=== PATIENT | female | born 1975 | race Caucasian/White ===

== ENCOUNTER 2023-03-11 20:35 | Outpatient (CLI) | payer BC, SELFPAY | END 2023-03-11 20:36 | disposition home or self-care (01) | LOC: SLEEP 20:36 | PROVIDERS: PCP Physician Assistant Medical; Visit Provider Family Medicine | DX: G47.33 Obstructive sleep apnea (adult) (pediatric) (principal) | CPT/HCPCS: 95810 ==

== ENCOUNTER 2025-05-04 09:40 | Emergency (ER) | payer OTHER, SELFPAY ==
--- OUTSIDE RECORDS SUMMARY | 2024-08-18 23:30 | XMS_ITS | Continuity of Care Document ---
Author Organization [facility] Address [address] [address] [place] [address] Phone Care Team Providers Care Char Filter Tank Tender Name Role Phone No Information Unavailable Unavailable Advance Directives Directive Yes / No Effective Date File Name No Information Encounters Encounter Description Practice Location Reason(s) For Visit Diagnoses Date Provider Providers Copied on Encounter [facility], [address] [address], [place], [place], [id number], [place] tel:[phone] No Information No Information Family History Family Member Type Diagnosis Age At Onset No Information Payers Payer name Insurance type Covered democrat ID Authoriza tion(s) No Information Social History Type Description Quantity Date Captured Comments Sex Female Smoking Status No Information Chief Complaint And Reason For Visit No Information Reason For Referral Reason For Referral No Information History Of Present Illness Encounter Date Complaint History Of Prese nt Illness No Information Functional Status Date Functional Assessmen t No Information Instructions Date Instruction Additional Infor mation No Information Assessments Type Assessment Date No Information Patient Care Teams Name Effective Dates (start - stop) Status Members No Information
--- OUTSIDE RECORDS SUMMARY | 2025-05-04 09:43 | XMS_ITS | Encounter Summary ---
Author Organization [facility] Address [address] [place] [id number] Care Team Providers Care Machine Operator Transplanter Name Role Phone Elsewhere, Pcp Primary Care Provider Unavailabl e Reason for Referral * Outpatient (Routine) - Closed Specialty Diagnoses / Procedures Referred By Contac t Referred To Contact Diagnoses Chronic Cough Procedures DX Chest AP or PA and Lateral 2 Views Mine Kelly M.B.B.S. [address] [place] [phone] Phone: tel: fax: [facility] Referral ID Status Reason Start Date Expiration Date Visits Re quested Visits Authorized [id number] Closed 05/07/2024 05/07/2025 1 1 Encounter Details Date Type Department Care Team (Late st Contact Info) Description 05/07/2024 Orders Only Division of Pulmonary Medicine in [place], [place] [address] [place] [phone] [facility], ProviderMD Chronic Cough Social History Tobacco Use Types Packs/Day Years Used Date Smoking Tobacco: Never Smokeless Tobacco: Never Alcohol Use Standard Drinks/Week Comments Yes 2 (1 standard drink = 0.6 oz pur e alcohol) Humiliation, Afraid, Rape, and Kick questionnair e Answer Date Recorded Within the last year, have y ou been afraid of your partner or ex-partner? No 12/07/2022 Within the last year, have y ou been humiliated or emotionally abused in other ways by your partner or ex-partner? No Within the last year, have y ou been kicked, hit, slapped, or otherwise physically hurt by your partner or ex-partner? No 12/07/2022 Within the last year, have y ou been raped or forced to have any kind of sexual activity by your partner or ex-partner? No 12/07/2022 Hunger Vital Sign Answer Date Recorded Within the past 12 months, y ou worried that your food would run out before you got the money to buy more. Never true 12/08/19 23 Within the past 12 months, t he food you bought just didn't last and you didn't have money to get more. Never true 12/07/2022 PRAPARE - Transportation Answer Date Re corded In the past 12 months, has l ack of transportation kept you from medical appointments or from getting medications? No 11/12 In the past 12 months, has l ack of transportation kept you from meetings, work, or from getting things needed for daily living? No 12/07/2022 Housing Stability Vital Sign Answer Michael e Recorded In the last 12 months, was t here a time when you were not able to pay the mortgage or rent on time? No 12/07/2022 In the last 12 months, how many places have you lived? 1 12/07/2022 In the last 12 months, was t here a time when you did not have a steady place to sleep or slept in a mcc (including now)? No 12/07/2022 Education Answer Date Recorded What is the highest level of school you have completed or the highest degree you have received? Some college, no degree 06/23/2021 Comments Unknown Sex and Gender Information Value Date Recorded Sex Assigned at Female 06/23/2021 7:38 PM DRYING MACHINE BACK TENDER Legal Sex Female 4:29 AM DRYING MACHINE BACK TENDER Gender Identity Female 03/22/2020 5:37 AM CDT Sexual Orientation Straight 03/22/2020 5: 37 AM CDT documented as of this encounter Plan of Treatment Not on file documented as of this encounter Results * DX Chest AP or PA and Lateral 2 Views (06/20/2024 9:07 AM DRYING MACHINE BACK TENDER) Anatomical Region Laterality Modality Chest, Thoracic RST LOS, Tho racic ARZ LOS, Thoracic FLA LOS N/A Digital Radiography Impressions 06/20/2024 9:31 AM DRYING MACHINE BACK TENDER Slight right perihilar bronchial wall thickening suggests some mild lower airways inflammatory changes and could be due to bronchitis. Lungs are clear. Chest otherwise negative. Narrative 06/20/2024 9:31 AM DRYING MACHINE BACK TENDER EXAM: DX CHEST AP OR PA AND LATERAL 2 VIEWS Procedure Note Kathleen Saravia M.D. - 06/20/2024 EXAM: DX CHEST AP OR PA AND LATERAL 2 VIEWS IMPRESSION: Slight right perihilar bronchial wall thickening suggests some mild lowerairways inflammatory changes and could be due to bronchitis. Lungs areclear. Chest otherwise negative. Monet John M.D. IMG DIAGNOSTIC IMAGING [facility] Final Result * Pulmonary Function Tests (06/20/2024 7:53 AM DRYING MACHINE BACK TENDER) FVC PROVDILATATION 3.37 L 2023 6:24 PM [facility] FEV 1 PROVDILATATION 2.45 L 06/20/2024 6:24 PM [facility] FEV1/FVC PROVDILATATION 72.53 % 06/20/2024 6:24 PM [facility] FEF 25-75% PROVDILATATION 1.79 L/s 06/20/2024 6:24 PM [facility] PEF PROVDILATATION 5.04 L/s 2023 6:24 PM [facility] FET PROVDILATATION 10.06 sec 2023 6:24 PM [facility] CHALFVC 2.96 L 06/20/2024 6:24 PM [facility] CHALFEV1 1.85 L 06/20/2024 6:24 PM [facility] FEV1/FVC PROVOCATION 62.49 % 06/20/2024 6:24 PM [facility] FEF 25-75% PROVOCATION 1.10 L/s 06/20/2024 6:24 PM [facility] PEF PROVOCATION 3.98 L/s 6:24 PM [facility] FET PROVOCATION 10.21 sec 6:24 PM [facility] DLCO SINGLE BREATH PROVBASE 23.80 ml/(min* mmHg) 06/20/2024 6:24 PM [facility] VA SINGLE BREATH PROVBASE 4.57 L 06/20/2024 6:24 PM [facility] FVC PROVBASE 3.26 L 06/20/2024 6:24 PM [facility] FEV 1 PROVBASE 2.37 L 06/20/2024 6:24 PM [facility] FEV1/FVC PROVBASE 72.84 % 024 6:24 PM [facility] FEF 25-75% PROVBASE 1.79 L/s 06/20/2024 6:24 PM [facility] PEF PROVBASE 5.18 L/s 06/20/2024 6:24 PM [facility] FET PROVBASE 13.09 sec 06/20/2024 6:24 PM [facility] MVV PROVBASE 79.18 L/min 06/20/2024 6:24 PM DRYING MACHINE BACK TENDER [facility] SUBSTANCE PROVOCATION Methacholine 06/20/2024 6:24 PM [facility] SUBSTANCE PROVDILATATION Combivent 06/20/2024 6:24 PM [facility] CUMULATED DOSE PROVOCATION 65 06/20/2024 6:24 PM [facility] CUMULATED DOSE PROVDILATATION 2 06/20/2024 6:24 PM [facility] PD 20 51.92 ug 06/20/2024 6:24 PM [facility] 06/20/2024 7:53 AM DRYING MACHINE BACK TENDER Impressions [facility] - 06/20/2024 6:24 PM DRYING MACHINE BACK TENDER Positive methacholine challenge. Flows improve towards baseline after bronchodilator administration. Normal baseline spirometry and diffusing capacity. Maximal respiratory pressures are reduced, consistent with poor performance or muscle weakness. However, MVV is normal. Narrative Procedure Note Valerio Nguyễn M.D. - 06/20/2024 IMPRESSION: Positive methacholine challenge. Flows improve towards baseline afterbronchodilator administration. Normal baseline spirometry and diffusingcapacity. Maximal respiratory pressures are reduced, consistent with poorperformance or muscle weakness. However, MVV is normal. Mine Kelly M.B.B.S. PFT ORDERABLES Final Result [facility] [address] * PUL Exhaled Nitric Oxide (06/20/2024 7:44 AM DRYING MACHINE BACK TENDER) Exhaled NO Oral 72 ONBASE Parts per billion (ULN) 39 ONBASE ENOComment Nasal measuring system unavailable. Patient takes Advair daily and ProAir as needed ONBASE Robertdanieljose Perez Kelly M.B.B.S. PFT ORDERABLES Final Result Performing Organization Address [facility] de Phone Number ONBASE NA * (ABNORMAL) Comprehensive Metabolic Panel (06/20/2024 7:17 AM DRYING MACHINE BACK TENDER) Potassium, S 3.5(L) 3.6 - 5.2 mmol/L 06/20/2024 8:18 AM DRYING MACHINE BACK TENDER DTL Sodium, S 139 135 - 145 mmol/L 06/20/2024 8:18 AM DRYING MACHINE BACK TENDER DTL Chloride, S 97(L) 98 - 107 mmol/L 06/20/2024 8:18 AM DRYING MACHINE BACK TENDER DTL Bicarbonate, S 27 22 - 29 mmol/L 06/20/2024 8:18 AM DRYING MACHINE BACK TENDER DTL Anion Gap 15 7 - 15 06/20/2024 8:18 AM DRYING MACHINE BACK TENDER DTL BUN (Blood Urea Nitrogen), S 15 6 - 21 mg/dL 06/20/2024 8:18 AM DRYING MACHINE BACK TENDER DTL Creatinine 0.71 0.59 - 1.04 mg/dL 06/20/2024 8:18 AM DRYING MACHINE BACK TENDER DTL Estimated GFR (eGFR) >90 >=60 mL/min/BS A 06/20/2024 8:18 AM DRYING MACHINE BACK TENDER DTL Comment: Estimated GFR calculated using the 2020 CKD_EPI creatinine equation. Calcium, Total, S 9.3 8.6 - 10.0 mg/dL 06/20/2024 8:18 AM DRYING MACHINE BACK TENDER DTL Glucose, S 121 70 - 140 mg/dL 06/20/2024 8:18 AM DRYING MACHINE BACK TENDER DTL Protein, Total, S 7.0 6.3 - 7.9 g/dL 06/20/2024 8:18 AM DRYING MACHINE BACK TENDER DTL Albumin, S 4.4 3.5 - 5.0 g/dL 06/20/2024 8:18 AM DRYING MACHINE BACK TENDER DTL Aspartate Aminotransferase (AST), S 19 8 - 43 U/L 06/20/2024 8:18 AM DRYING MACHINE BACK TENDER DTL Alkaline Phosphatase, S 110(H) 35 - 104 U/L 06/20/2024 8:18 AM DRYING MACHINE BACK TENDER DTL Alanine Aminotransferase (ALT), S 30 7 - 45 U/L 06/20/2024 8:18 AM DRYING MACHINE BACK TENDER DTL Bilirubin, Total, S 0.3 0.0 - 1.2 mg/dL 06/20/2024 8:18 AM DRYING MACHINE BACK TENDER DTL Blood (Blood, Venous) 06/20/2024 7:17 AM DRYING MACHINE BACK TENDER 06/20/2024 7:58 AM DRYING MACHINE BACK TENDER us Monet John M.D. LAB BLOOD ADD-ON Final Resul t [address] [address], [facility] DTL [address] [address] documented in this encounter Visit Diagnoses Diagnosis Chronic Cough Chronic Cough Chronic Cough documented in this encounter Additional Health Concerns Infection Onset Date Last Indicated Resolved Time Protective Environment 12/08/2022 12/08/2022 documented as of this encounter Care Teams Machine Operator Transplanter Relationship Specialty Start Date End Date Elsewhere, Pcp PCP - General Internal Medicine 09/03/24 documented as of this encounter
--- OUTSIDE RECORDS SUMMARY | 2025-05-04 09:43 | XMS_ITS | Clinical Summary ---
Author Organization [facility] Address [address] [place] [address] Care Team Providers Care Data Services Developer Name Role Phone Elsewhere, Pcp Primary Care Provider Unavailabl e Source Comments Patient records contain information from all sites at [facility]. For routine questions regarding patient records, call [phone] during business hours, M-F 8:00 AM - 5:00 PM Central Time. Record requests for emergency care only can be directed to [phone] at any time.[facility] Allergies Active Allergy Reactions Criticality Noted Date Comments Amlodipine Other (see comments) 11/17/2019 Headache and fatigue. Medications albuterol (ProAir HFA) inhaler Inhale 1-2 puffs as needed. 0 Active ipratropium-alb uteroL (DUONEB) 0.5-2.5 mg/3 mL nebulizer solution Inhale 3 mL 4 (four) times a day as needed for wheezing or shortness of breath. 7 Active losartan (COZAAR) 100 mg tablet Take 100 mg by mouth daily. 0 Active pantoprazole (PROTONIX) 40 mg EC tablet Take 1 tablet (40 mg total) by mouth daily. 90 tablet 3 0 Active ocrelizumab (OCREVUS IV) Infuse into a venous catheter every 6 (six) months. 0 Active riboflavin (VITAMIN B2) 100 mg tablet Take 4 tablets (400 mg total) by mouth daily. 120 tablet 11 3 Active chlorthalidone (Hygroton) 25 mg tablet Take 1 tablet by mouth daily. 4 Active cholecalciferol (Vitamin D3) 1,250 mcg (50,000 Unit) capsule Take 50,000 Units by mouth once a week. 4 Active budesonide-glyc opyr-formoterol (Breztri Aerosphere) 160-9-4.8 mcg/actuation inhalerIndicati ons:Asthma (HCC) Inhale 2 puffs 2 (two) times a day. Rinse mouth with water after use to reduce aftertaste and incidence of candidiasis. Do not swallow. 10.7 g 11 5 Active fluticasone propionate (Flonase) 50 mcg/actuation nasal sprayIndication s:Drip Post Nasal Administer 2 sprays into each nostril daily. 16 g 11 5 Active montelukast (Singulair) 10 mg tabletIndicatio ns:Asthma Chronic (HCC),Drip Post Nasal Take 1 tablet (10 mg total) by mouth at bedtime. 30 tablet 5 5 Active Active Problems Problem Noted Date Diagnosed Date Fatigue 12/12/2022 COVID-19 Infection 05/05/2021 Multiple Sclerosis 03/26/2020 Asthma 04/13/2017 Encounters Date Type Department Care Team Description 02/19/2025 1:30 PM CDT Infusion Department of Infusion Therapy in [address] [place] [address] Carlitos Gamez M.B., B.Ch. Multiple Sclerosis (HCC) (Primary Dx) 02/01/2025 Orders Only Department of Neurology in [place], [place] [address] [place] [address] Carlitos Gamez M.B., B.Ch. from Last 3 Months Immunizations Immunization Administration Dates Next Due SARS-COV-2 (COVID-19) - PFIZ ER (Discontinued)(12 years or older) 04/13/2021 SARS-COV-2 (COVID-19) - PFIZ ER TS(Discontinued)(12 years or older) 09/30/2021 Family History Medical History Relation Name Comments Coronary artery disease Father Robert Wolfe Hyperlipidemia Father Robert Wolfe Hypertension Father Robert Wolfe Rheum arthritis Mother Danette Wolfe Rheum arthritis Sister Lois Ch Relation Name Status Comments Father Robert Wolfe Mother Danette Wolfe Sister Lois Ch Social History Tobacco Use Types Packs/Day Years Used Date Smoking Tobacco: Never Passive Smoke Exposure: Current Smokeless Tobacco: Never Tobacco Cessation:Counseling Given: Not Answered Passive Exposure Comments: smokes Alcohol Use Standard Drinks/Week Comments Yes 4 (1 standard drink = 0.6 oz pur e alcohol) [facility] Utilities Answer Date Recorded In the past 12 months has e [employer], gas, oil, or water [employer] threatened to shut off services in your home? No 07/14/2024 Humiliation, Afraid, Rape, and Kick questionnair e [...] the money to buy more. Never true 07/14/20 24 Within the past 12 months, t he food you bought just didn't last and you didn't have money to get more. Never true 07/14/2024 PRAPARE - Transportation Answer Date Re corded In the past 12 months, has l ack of transportation kept you from medical appointments or from getting medications? No 09/2023 In the past 12 months, has l ack of transportation kept you from meetings, work, or from getting things needed for daily living? No 07/14/2024 Housing Stability Answer Date Recorded What is your living situation today? I have a [facility] place to live 07/14/2024 Education Answer Date Recorded What is the highest level of school you have completed or the highest degree you have received? Some college, no degree 06/23/2021 Comments Unknown Sex and Gender Information Value Date Recorded Sex Assigned at Female 06/23/2021 7:38 PM SENIOR UI DEVELOPER Legal Sex Female 4:29 AM SENIOR UI DEVELOPER Gender Identity Female 03/22/2020 5:37 AM CDT Sexual Orientation Straight 03/22/2020 5: 37 AM CDT Last Filed Vital Signs Vital Sign Reading Time Taken Comments Blood Pressure 164/81 02/19/2025 6:24 PM CDT Pulse 105 02/19/2025 6:24 PM CDT Temperature 36.6 C (97.9 F) 02/19/2025 2:09 PM CDT Respiratory Rate 18 02/19/2025 5:38 PM CDT Oxygen Saturation 96% 09/04/2024 7:46 AM SENIOR UI DEVELOPER Inhaled Oxygen Concentration - - Weight 108 kg (237 lb 7 oz) 09/04/2024 7:[address] Height 153.8 cm (5' 0.55) 09/04/2024 7:46 AM CS T Body Mass Index 45.53 09/04/2024 7:46 AM SENIOR UI DEVELOPER Plan of Treatment Health Maintenance Due Date Last Done Comments CT Colonography 1977 Cologuard 1977 FIT 1977 Hepatitis B Vaccines (1 of 3 - 19+ 3-dose series) 1996 Pneumococcal vaccine (0-49 years) (1 of 2 - PCV) 1996 Zoster Vaccines (1 of 2) 1996 Cervical/Vaginal Cancer Screening 11/11/2022 11/12/2019 (Performed elsewhere) Asthma Action Plan 07/31/2024 Asthma Control Test Questionnaire 07/31/2024 Asthma Management/Exacerbation Questionnaire (AMQ/AEQ) 07/31/2024 Depression Screening (Annual PHQ-2) 08/13/2024 COVID-19 Vaccine ( season) 2025 07/20/2022, 09/30/2021, 04/13/2021, Additional history exists Influenza Vaccine (#1) 2025 , 05/12/2020, 05/05/2020, Additional history exists Creatinine Level (Kidney Function Test) 11/20/2025 11/20/2024, 06/20/2024, 02/22/2024, Additional history exists Potassium Level 11/20/2025 11/20/2024, 0 03/2024, 02/22/2024, Additional history exists Sodium Level 11/20/2025 11/20/2024, 0 03/2024, 02/22/2024, Additional history exists Mammogram 01/01/2026 01/01/2025, 12/12, 02/15/2023, Additional history exists Fasting Glucose for Diabetes Screening 11/21/2027 11/20/2024, 06/20/2024, 02/22/2024, Additional history exists Lipid (Cholesterol) Screening 01/02/2028 01/01/2023, 11/15/2021, 11/13/2019 DTaP,Tdap,and Td Vaccines (3 - Td or Tdap) 01/06/2030 01/07/2020, 02/10/2008 Colonoscopy 06/14/2033 06/14/2023 Colorectal Cancer Screening 06/14/2033 Hepatitis B Screening Discontinued 04/01/2020 HPV Vaccines Aged Out No longer eligi ble based on patient's age to complete this topic IPV Vaccines Aged Out No longer eligi ble based on patient's age to complete this topic Procedures Procedure Name Priority Date/Time Associated Diagnosis Comments COMPREHENSIVE METABOLIC PANEL, S/P Routine 06/20/2024 7:17 AM SENIOR UI DEVELOPER Chronic Cough HEPATITIS B SURFACE ANTIGEN Routine 04/01/2020 12:44 PM CDT Elevated Sedimentation Rate Multiple Sclerosis (HCC) from Last 3 Months or Most Recently Relevant to Health Maintenance Results * (ABNORMAL) Comprehensive Metabolic Panel (06/20/2024 7:17 AM SENIOR UI DEVELOPER) Potassium, S 3.5(L) 3.6 - 5.2 mmol/L 06/20/2024 8:18 AM SENIOR UI DEVELOPER DTL Sodium, S 139 135 - 145 mmol/L 06/20/2024 8:18 AM SENIOR UI DEVELOPER DTL Chloride, S 97(L) 98 - 107 mmol/L 06/20/2024 8:18 AM SENIOR UI DEVELOPER DTL Bicarbonate, S 27 22 - 29 mmol/L 06/20/2024 8:18 AM SENIOR UI DEVELOPER DTL Anion Gap 15 7 - 15 06/20/2024 8:18 AM SENIOR UI DEVELOPER DTL BUN (Blood Urea Nitrogen), S 15 6 - 21 mg/dL 06/20/2024 8:18 AM SENIOR UI DEVELOPER DTL Creatinine 0.71 0.59 - 1.04 mg/dL 06/20/2024 8:18 AM SENIOR UI DEVELOPER DTL Estimated GFR (eGFR) >90 >=60 mL/min/BS A 06/20/2024 8:18 AM SENIOR UI DEVELOPER DTL Comment: Estimated GFR calculated using the 2020 CKD_EPI creatinine equation. Calcium, Total, S 9.3 8.6 - 10.0 mg/dL 06/20/2024 8:18 AM SENIOR UI DEVELOPER DTL Glucose, S 121 70 - 140 mg/dL 06/20/2024 8:18 AM SENIOR UI DEVELOPER DTL Protein, Total, S 7.0 6.3 - 7.9 g/dL 06/20/2024 8:18 AM SENIOR UI DEVELOPER DTL Albumin, S 4.4 3.5 - 5.0 g/dL 06/20/2024 8:18 AM SENIOR UI DEVELOPER DTL Aspartate Aminotransferase (AST), S 19 8 - 43 U/L 06/20/2024 8:18 AM SENIOR UI DEVELOPER DTL Alkaline Phosphatase, S 110(H) 35 - 104 U/L 06/20/2024 8:18 AM SENIOR UI DEVELOPER DTL Alanine Aminotransferase (ALT), S 30 7 - 45 U/L 06/20/2024 8:18 AM SENIOR UI DEVELOPER DTL Bilirubin, Total, S 0.3 0.0 - 1.2 mg/dL 06/20/2024 8:18 AM SENIOR UI DEVELOPER DTL Blood (Blood, Venous) 06/20/2024 7:17 AM SENIOR UI DEVELOPER 06/20/2024 7:58 AM SENIOR UI DEVELOPER us Monet John M.D. LAB BLOOD ADD-ON Final Resul t [facility] [address] [place] [address], [facility] [address] [place] [address] * Hepatitis B Surface Antigen (04/01/2020 12:44 PM CDT) HBs Antigen, S Negative Negative 04/01/2020 4:43 PM CDT [facility] Blood (Blood, Venous) 04/01/2020 12:44 PM CDT 04/01/2020 3:22 PM CDT Kimberly Gudino M.D. LAB MICROBIOLOGY - BLOOD ORDERABLES Final Result [facility] [address] [place] [address] [facility] Dept. of Laboratory Medicine and Pathology [address] [place] [address] from Last 3 Months or Most Recently Relevant to Health Maintenance Additional Health Concerns Infection Onset Date Last Indicated Protective Environment 12/08/2022 3 Insurance [facility] Care Teams Data Services Developer Relationship Specialty Start Date End Date Elsewhere, Pcp PCP - General Internal Medicine 09/03/24
--- OUTSIDE RECORDS SUMMARY | 2025-05-04 09:43 | XMS_ITS | Clinical Summary ---
Author Organization [facility] Address [address] [place] [address] Care Team Providers Care Functional Mental Disability Teacher Name Role Phone Dionne Carlson Christina WOODS Primary Care Provider [phone] Celine Rodney MD Unavailable [phone] Marilou Arevalo NP Unavailable Allergies Active Allergy Reactions Criticality Noted Date Comments Amlodipine Other - Describe In Comment Field 11/17/2019 Headache and fatigue. Medications albuterol-ipratrop ium (DUONEB) (2.5-0.5 mg) in 3 mL NEBULIZATION solutionIndication s:Reactive airway disease, unspecified asthma severity, uncomplicated (HC) Inhale 3 mL via a nebulizer every 6 hours if needed. 1 box 2 04/13/20 17 Active Blood Pressure MonitorIndications :HTN (hypertension) Check blood pressure once daily and record readings for appointments 1 Device 11/13/19 20 Active ocrelizumab (Ocrevus) 30 mg/mL soln Inject 20 mL (600 mg) intravenous EVERY 6 MONTHS. 0 08/19/19 22 Active CPAPIndications:OS A (obstructive sleep apnea) Resmed CPAP machine for home use at pressure 5-15cmw, CPAP mask- mask of choice, fit to comfort one per 3 months 1 Each 11 11/12/19 24 Active albuterol HFA (PRO-AIR; VENTOLIN; PROVENTIL) 90 mcg/actuation inhalerIndications :Reactive airway disease, unspecified asthma severity, uncomplicated (HC) Inhale 1-2 Puffs by mouth every 4 hours if needed for Shortness Of Breath or Wheezing. 1 Each 5 05/05/20 24 Active metoprolol tartrate 50 mg tabletIndications: HTN (hypertension) TAKE 1 TABLET BY MOUTH TWICE DAILY NEEDED FOR HYPERTENSION FOLLOWING INFUSION 90 Tablet 1 12/24/19 25 Active chlorthalidone 25 mg tabletIndications: Hypertension, unspecified type Take 1 Tablet (25 mg) by mouth once daily. 90 Tablet 3 01/01/20 25 Active budesonide-glycopy r-formoterol (Breztri Aerosphere) 160-9-4.8 mcg/actuation HFAAIndications:Mo derate persistent reactive airway disease without complication (HC) Inhale 2 Puffs by mouth two times daily. 10.7 g 3 01/01/20 25 Active phentermine-topira mate 3.75-23 mg 3.75-23 mgIndications:Morb id exogenous obesity (HC) Take 1 Capsule by mouth once daily. 14 Capsule 01/01/20 25 Active rosuvastatin 10 mg tabletIndications: Hyperlipidemia, unspecified hyperlipidemia type Take 1 Tablet (10 mg) by mouth at bedtime. 90 Tablet 3 01/07/20 25 Active losartan 100 mg tabletIndications: HTN (hypertension) Take 1 Tablet (100 mg) by mouth once daily. 90 Tablet 2 02/10/20 25 Active pantoprazole 40 mg delayed-release tabletIndications: Chronic GERD Take 1 Tablet (40 mg) by mouth once daily before a meal. 90 Tablet 2 02/10/20 25 Active Active Problems Problem Noted Date Diagnosed Date Adrenal incidentaloma 01/02/2024 ILEANA 03/11/2023 AHI- 7 11/12/2023 Anemia 06/14/2023 Pap smear for cervical cancer screening 01/12/20 23 Overview (03/07/2023): 09/2005 ASCUS/HPV+ 10/2005 Otto: Biopsy and ECC Negative 10/2006 NIL 01/2008 NIL 03/2012 NIL 03/2015 NIL 12/2019 NIL 01/2023 NIL/HPV negative. Plan: Pap/HPV due 01/2028. MS (multiple sclerosis) 09/30/2021 HTN (hypertension) 04/13/2017 Reactive airway disease without complication 08/2016 Hyperlipidemia 04/09/2015 Class 3 severe obesity due t o excess calories with serious comorbidity and body mass index (BMI) of 40.0 to 44.9 in adult 03/28/2012 Resolved Problems Problem Noted Date Diagnosed Date Resolved Date Bulimia nervosa 08/19/2006 08/19/2006 Headache(784.0) 08/19/2006 08/19/2006 Overview (08/19/2006): Hx vascular Unspecified legally induced without mention of complication 08/19/2006 08/19/2006 Overview (08/19/2006): Encounters Date Type Department Care Team Description 05/04/2025 Telephone [facility] [address] [place] [address] Nicol Massey PA Concerns 05/04/2025 Nurse Triage [facility] [address] [place] [address] Dionne Carlson, Pelvis Pain/problem 02/08/2025 Refill [facility] [address] [place] [address] Dionne Carlson DO Refill Request (Losartan, Pantoprazole) from Last 3 Months Immunizations Immunization Administration Dates Next Due AMB INFLUENZA, IIV4 (AGE=>6MOS) MDV (Flu Clinic Only) 06/19/2017 COVID-19 vaccine (Array Storm-Bio NTech 30mcg/0.3mL) 12YO+ BIVALENT PF, MDV 07/20/2022 COVID-19 vaccine (Pfizer-Bio NTech 30mcg/0.3mL) 12YO+ TEVIN-SUCROSE PF, MDV 09/30/2021 COVID-19 vaccine (Array Storm-Applied MicroStructuresNTech 30mcg/0.3mL) P F, MDV 11/30/2020,11/09/2020 Hepatitis A (Adult) 02/10/2008,10/15/2006 Influenza, IIV4 07/20/2022,08/22/2016 Influenza,CCIIV4 PRESERV FREE 05/05/2020 MMR 04/22/1990 Td (Age >=7 Years) 03/29/1998 Td, Preservative Free (age >= 7 Years) 0 Tdap 02/10/2008 Family History Medical History Relation Name Comments COPD Father Robert Buck Coronary artery disease Father Robert Buck Heart Disease Father Robert Buck [place] age 47 [place] Heart attack Father Robert Buck Hypertension Father Robert Buck Obesity Father Robert Buck Cancer Maternal Grandfather unknown primary source Cancer Maternal Grandmother Stomach Anemia Mother Danette Buck hemolytic Rheum arthritis Mother Danette Buck and psoriati c arthritis Cancer-breast Paternal Aunt 1 Kathryn Green 14 sisters - 12 have had breast cancer Cancer-breast Paternal Aunt 2 Swathi VanDam Heart attack Paternal Grandfather Alcoholism Paternal Grandmother Aliya Buck Diabetes Paternal Uncle 1 Tomas Renneke Heart attack Paternal Uncle 1 Tomas Renneke Stroke Paternal Uncle 2 Calvin VanDam Arthritis Sister 1 inflammatory Rheum arthritis Sister 2 Lois Ch Cancer-ovarian No Family History Relation Name Status Comments Father Robert Buck Alive Maternal Grandfather Maternal Grandmother Mother Danette Buck Alive Paternal Aunt 1 Kathryn Green Paternal Aunt 2 Swathi Chakrabortyam Alive Paternal Grandfather Paternal Grandmother Aliya Buck Paternal Uncle 1 Tomas Renneke Paternal Uncle 2 Calvin VanDam Alive Sister 1 Alive Sister 2 Lois Ch Alive Social History Tobacco Use Types Packs/Day Years Used Date Smoking Tobacco: Never Smokeless Tobacco: Never Tobacco Cessation:Counseling Given: Not Answered Alcohol Use Standard Drinks/Week Comments Yes 0 (1 standard drink = 0.6 oz pur e alcohol) 3-6 drinks monthly PHQ-2 Answer Date Recorded PHQ-2 TOTAL SCORE 0 11/27/2023 Social Connections Answer Date Recorded Do you often feel lonely or isolated from those around you? 0 12/10/2024 Financial Resource Strain Answer Date R ecorded Difficulty of Paying Living Expenses 3 12/10/2024 Difficulty of Paying Living Expenses Not on file 12/10/2024 Food Insecurity Answer Date Recorded Do you worry your food will run out before you are able to buy more? 1 12/10/2024 Transportation Needs Answer Date Record ed Does lack of transportation keep you from medica l appointments? 1 12/10/2024 Does lack of transportation keep you from work, meetings or getting things that you need? 1 12/10/2024 Housing Stability Answer Date Recorded What is your housing situation today? 1 12/10/2024 Utilities Answer Date Recorded Do you have trouble paying f or utilities (for example, heat, electricity, water, phone)? 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 Not on file Not on tahir e Not on file Not on file Not on file Not on file Obstetrics History Last Filed Vital Signs Vital Sign Reading Time Taken Comments Blood Pressure 123/87 12/31/2024 1:40 PM CDT Pulse 87 12/31/2024 1:40 PM CDT Temperature 36.7 C (98 F) 12/10/2024 3:23 PM CDT Respiratory Rate 16 08/04/2024 7:40 AM MUSEUM SPECIALIST Oxygen Saturation 96% 12/31/2024 1:40 PM CDT Inhaled Oxygen Concentration - - Weight 105.5 kg (232 lb 9.6 oz) 12/31/2024 1:40 PM CDT Height 154.9 cm (5' 0.98) 12/31/2024 1:40 PM CD T Body Mass Index 43.97 12/31/2024 1:40 PM CDT Plan of Treatment Health Maintenance Due Date Last Done Comments Hepatitis B series for 19+ ( 1 of 3 - 19+ 3-dose series) 1996 Pneumococcal series for age 6-49 (1 of 2 - PCV) 1996 Depression screening for age 12+ 11/28/2024 11/29/2023, 11/27/2023, 07/20/2022, Additional history exists COVID-19 vaccine series ( season) 2025 07/20/2022, 09/30/2021, 04/13/2021, Additional history exists Influenza Vaccine (#1) 2025 , 05/05/2020, 06/19/2017, Additional history exists BMI (ht and wt on same day) for age 18+ 12/31/2025 12/31/2024, 01/31/2023, 07/20/2022, Additional history exists Mammogram for age 45-75 01/01/2026 01/02/20 25, 02/15/2023, 09/29/2020 Pap test for age 21-65 02/01/2028 , 01/31/2023, 01/07/2020, Additional history exists Lipids for age 45-75 12/31/2029 12/31/2024, 01/01/2023, 11/15/2021, Additional history exists Tetanus booster 01/06/2030 01/07/2020, 01/13, 03/29/1998 Colonoscopy through age 75 06/14/2033 06/14/2023 RSV vaccine for adults or (1 - 1-dose 75+ series) 2052 Hepatitis C screening for ag e 18-79 Completed 10/17/2005, 06/16/2004 HIV for age 15-65 Completed 07/20/2022 Procedures Procedure Name Priority Date/Time Associated Diagnosis Comments XR MAMMO JERICHO BILAT SCREEN Routine 01/01/2025 11:34 AM CDT Visit for screening mammogram LIPID PANEL W REFLEX MEASURED LDL Routine 12/31/2024 2:56 PM CDT Hyperlipidemia, unspecified hyperlipidemia type COLONOSCOPY 06/14/2023 1:45 PM CDT DIRECTOR OF CATERING THIN PREP PAP SCREEN IMAGED Routine 01/31/2023 2:32 PM CDT Screening for cervical cancer ANTI HIV 1/2 Routine 07/20/2022 2:54 PM MUSEUM SPECIALIST Encounter for screening for HIV ANTI HCV Timed 10/17/2005 12:00 PM MUSEUM SPECIALIST from Last 3 Months or Most Recently Relevant to Health Maintenance Results * XR MAMMO JERICHO BILAT SCREEN (01/01/2025 11:34 AM CDT) Anatomical Region Laterality Modality BREASTS, Breast Left, Breast Right Bilateral Mammography Impressions 01/01/2025 2:31 PM CDT There is no radiographic evidence for malignancy. Recommend annual mammograms. MAMMOGRAM ASSESSMENT: ACR 1 Negative PATIENTS: You will also receive a letter with your examination results in an easy to read format. If you have questions about your results, please contact your referring provider. Narrative 01/01/2025 2:31 PM CDT For Patients: As a result of the Cures Act, medical imaging exams and procedure reports are released immediately into your electronic medical record. You may view this report before your referring provider. If you have questions, please contact your health care provider. XR MAMMO JERICHO BILAT SCREEN [[id number]] CLINICAL HISTORY: This is an asymptomatic 49 y.o. patient. INDICATION FOR EXAM: Mammogram Screening. TECHNIQUE: CC and MLO views were obtained. This study was evaluated with the assistance of Computer-Aided Detection. Breast Tomosynthesis was used in interpretation. COMPARISON FILM: Yes 02/15/23 [facility] 09/29/20 [facility] FINDINGS: There are scattered areas of fibroglandular density. There are no dominant masses, suspicious micro calcifications or areas of architectural distortion. us Dionne Christina Shaqra DO MAMMO Final Result * (ABNORMAL) LIPID PANEL W REFLEX MEASURED LDL (12/31/2024 2:56 PM CDT) CHOLESTEROL, TOTAL 236(H) <200 mg/dL [facility] HDL CHOLESTEROL 42(L) > OR = 50 mg/dL [facility] TRIGLYCERIDES 115 <150 mg/dL [facility] LDL-CHOLESTEROL 170(H) mg/dL (calc) [facility] Comment: Reference range: <100 Desirable range <100 mg/dL for primary prevention; <70 mg/dL for patients with CHD or diabetic patients with > or = 2 CHD risk factors. LDL-C is now calculated using the Geneva calculation, which is a validated novel method providing better accuracy than the Friedewald equation in the estimation of LDL-C. Keyon CHOUDHARY et al. ONEIDA. 2013;310(19): 1795-2598 (http://education.Mahalo.Dacheng Network/faq/JVF064) CHOL/HDLC RATIO 5.6(H) <5.0 (calc) [facility] NON HDL CHOLESTEROL 194(H) <130 mg/dL (calc) [facility] Comment: For patients with diabetes plus 1 major ASCVD risk factor, treating to a non-HDL-C goal of <100 mg/dL (LDL-C of <70 mg/dL) is considered a therapeutic option. Blood BLOOD SPECIMEN / Unknown 12/31/2024 2:56 PM CDT 12/31/2024 2:56 PM CDT us Dionne Carlson DO CHEMISTRY Final Result [facility] [address] [place] [address], [email or web address] [address] [place] [address] * COLONOSCOPY (06/14/2023 1:45 PM CDT) 06/14/2023 1:45 PM CDT Narrative Transcriptions Marco A Alvarez MD - 06/14/2023 2:45 PM CDT Patient Name: Subha Arias Procedure Date: 06/14/2023 Gender: Female Date of : 1975 Admit Type: Ambulatory Procedure: Colonoscopy Proceduralist: Marco A Alvarez MD [facility] Referring MD: Celine Rdoney Indications/Pre-Op Diagnosis: Iron deficiency anemia Medications: Propofol per Anesthesia Procedure Description: The patient had risks, benefits and alternatives explained to andgave informed consent. The patient had a stable cardiopulmonary status and judged an adequate candidate for conscious sedation. The endoscope [id number] was passed through the anus andadvanced to the cecum, identified by appendiceal orifice and ileocecal valve.The colonoscopy was performed without difficulty. The patient toleratedthe procedure well. The quality of the bowel preparation was good. The ileocecal valve, appendiceal orifice, and rectum were photographed. Complications: No immediate complications. Estimated Blood Loss & Specimen: Estimated blood loss: none. Findings: Skin tags were found on perianal exam. The colon (entire examined portion) appeared normal. The entire examined colon appeared normal on direct and retroflexion views. Impressions/Post-Op Diagnosis: - Perianal skin tags found on perianal exam. - The entire examined colon is normal. - The entire examined colon is normal on direct and retroflexionviews. - No specimens collected. Recommendation: - Discharge patient to home. - Resume previous diet. - Continue present medications. Marco A Alvarez MD 06/14/2023 2:45:29 PM Note Initiated On: 06/14/2023 1:45 PM Marco A Alvarez MD PROCEDURE ORD Final Resu lt * DIRECTOR OF CATERING THIN PREP PAP SCREEN IMAGED [[id number]] (01/31/2023 2:32 PM CDT) Case Report Gynecologic Cytology Report Case: [id number] Authorizing Provider: Dionne Carlson DO Collected: 01/31/2023 1432 Ordering Location: [facility] Received: 01/31/2023 1558 Clinic First Screen: Jigna Rivas Specimen: DIRECTOR OF CATERING ThinPrep Vial Screening, Cervical 03/04/2023 10:14 AM CDT [facility] INTERPRETATION/ RESULT NEGATIVE FOR INTRAEPITHELIAL LESION OR MALIGNANCY (NIL) (none) 03/04/2023 10:14 AM CDT [facility] ENTRMS LABORATORY at 1014 CDT SPECIMEN ADEQUACY Satisfactory for evaluation Endocervical component present 03/04/2023 10:14 AM CDT [facility] HPV REQUEST HPV and PAP 03/04/2023 10:14 AM CDT [facility] Date of LMP 01/19/2023 03/04/2023 10:14 AM CDT [facility] ENTRAL LABORATORY Last Pap Date 01/07/20 03/04/2023 10:14 AM CDT [facility] Last Pap Result NIL 10:14 AM CDT [facility] ENTRAL LABORATORY Abnormal Pap or Otto Bx in last 5 years No 03/04/2023 10:14 AM CDT [facility] Menstrual Status Regular Periods 03/04/2023 10:14 AM CDT [facility] ENTRAL LABORATORY Otto Bx Done Today No 03/04/2023 10:14 AM CDT [facility] ENTRAL LABORATORY Additional Information None given 03/04/2023 10:14 AM CDT [facility] ENTRAL LABORATORY Comment: Cytology is screened at [facility] - [address], [place] [address] and [facility] - [address] [place] [address] and [facility] - [address] [place] [address] Interpreted at [facility] - [address], [place] [address] Automated Review Successful 03/04/2023 10:14 AM CDT [facility] EN[facility] Comment:Specimen processed s uccessfully by automated shank piece tacker device, ThinPrep Imaging System, [employer] ANCILLARY TESTING DIRECTOR OF CATERING HPV Ordered, Please see separate report 03/04/2023 10:14 AM CDT [facility] EN[facility] Note The pap test is a screening technique, not a diagnostic procedure. It is used primarily to screen for squamous cancers and precursor lesions. Published studies have shown that it is subject to both false negative and false positive results. The pap test should not be used as the sole means to diagnose or exclude pre-malignant and malignant lesions. 03/04/2023 10:14 AM CDT [facility] Other (Cervical) Non-Blood / Unknown 01/31/2023 2:32 PM CDT 01/31/2023 3:58 PM CDT Dionne Carlson DO PATHOLOGY/CYTOLOGY Final Resu lt [facility] [address] [place] [address], [place] * ANTI HIV 1/2 (07/20/2022 2:54 PM MUSEUM SPECIALIST) HIV-1/HIV-2 ANTIBODY Non-Reacti ve Non-Reacti ve 07/21/2022 8:34 PM MUSEUM SPECIALIST [facility] Comment:HIV-1 p24 and HIV-1/ HIV-2 Ab not detected. Blood BLOOD SPECIMEN / Unknown Venipuncture / Unknown 07/20/2022 2:54 PM MUSEUM SPECIALIST 07/20/2022 2:57 PM MUSEUM SPECIALIST us Marly Wilkes PA SEND OUTS Final Resu lt Performing Organization Address [facility]/ZIP Co de Phone Number [facility] [address] [place] [address], [place] * ANTI HCV (10/17/2005 12:00 PM MUSEUM SPECIALIST) ANTI HCV Non-reactiv e [facility] 10/17/2005 12:0 0 PM MUSEUM SPECIALIST 10/17/2005 6:20 PM MUSEUM SPECIALIST Narrative [facility] - 10/20/2005 11:49 AM MUSEUM SPECIALIST Testing Performed By [place], [place] us Jabier Leal DO SEND OUTS Final Res ult Performing Organization Address City/[facility]/ZIP Co de Phone Number [facility] [address] [place] [address] from Last 3 Months or Most Recently Relevant to Health Maintenance Insurance [facility] Advance Directives * Full Code (Latest Code Status on File) Date Activated Date Inactivated Comments 06/14/2023 12:45 PM 06/14/2023 5:34 PM Question Answer Comments Code Status Discussion: Unable to Assess Preferences, Provider to review later Care Teams Functional Mental Disability Teacher Relationship Specialty Start Date End Date Dionne Carlson DO [address] [place] [id number] PCP - General Family Practice 01/01/23 Celine Rodney MD [address] [place] [address] Oncology 08/07/24 Marilou Arevalo NP [address] [place], [place] [id number] Oncology 08/07/24
[2025-05-04 09:44] VITALS: BP 133/81; PULSE 103; RESP 18; TEMP 35.4; O2SAT 96
--- NOTE | 2025-05-04 11:53 | CRLHL7_ITS ---
For Patients: As a result of the Century Cures Act, medical imaging exams and procedure reports are released immediately into your electronic medical record. You may view this report before your referring provider. If you have questions, please contact your health care provider. INDICATION: Left-sided pain TECHNIQUE: Ultrasound pelvis transvaginal for better assessment or to better visualize the endometrium. Real-time sonographic images with spectral and color Doppler imaging of the ovaries were obtained. COMPARISON: None. FINDINGS: Uterus: 11.8 x 9.4 x 9.4 centimeters. Multiple uterine fibroids -a right uterine body fibroid measuring 5.3 x 4.8 by 4.8 centimeters (FIGO 3-5) -left uterine body fibroid measuring 4.2 x 3.7 x 3.9 centimeters (FIGO 3, 4) -left uterine fibroid near the fundus measuring 3 x 3.3 x 2.9 centimeters (FIGO 3, possibly FIGO 2) Endometrium: Transvaginal imaging was performed to better evaluate the endometrium. Endometrial thickness measures the mm. No sign of endometrial mass or fluid. Right ovary is not visualized. Left ovary 3.5 x 1.6 x 1.8 centimeters. No ovarian or adnexal masses. Normal arterial and venous blood flow is demonstrated in left ovary. Cul-de-sac: No significant free fluid. IMPRESSION: Multiple uterine fibroids, as detailed above. Normal endometrial thickness. Dictated by Toshia Chang MD @ 05/04/2025 12:55:57 PM (Electronically Signed)
[2025-05-04 12:59] VITALS: BP 137/76; PULSE 82; RESP 18; O2SAT 96
--- NOTE | 2025-05-04 13:14 | CRLHL7_ITS ---
For Patients: As a result of the Century Cures Act, medical imaging exams and procedure reports are released immediately into your electronic medical record. You may view this report before your referring provider. If you have questions, please contact your health care provider. INDICATION: Left lower quadrant pain. TECHNIQUE: CT abdomen and pelvis acquired without contrast. COMPARISON: Same-day pelvic ultrasound. FINDINGS: Lower chest: Unremarkable Liver: Small subcentimeter hypodense lesion, too small to characterize. Gallbladder and bile ducts: Small punctate hypodensity seen in the gallbladder, which could be reflective of a small stone. Pancreas: Unremarkable Spleen: Unremarkable Adrenal glands: Stable 2.1 centimeter benign-appearing left adrenal lesion, favored to be adenoma based on prior examinations. Kidneys: 4 millimeter nonobstructing right renal calculus in lower pole. No hydronephrosis. No left renal calculi. GI tract: Small hiatal hernia. Normal appendix. Vasculature: Abdominal aorta is normal in caliber. Lymph nodes: No lymphadenopathy. Peritoneum/Abdominal Wall: Unremarkable Pelvis: Fibroid uterus. Please refer to same day ultrasound. Bones: No acute osseous abnormality. IMPRESSION: 4 millimeter nonobstructing right renal calculus. No hydronephrosis. Small punctate hyperdensity seen within gallbladder, could be reflective a gallstone. Further evaluation can be obtained with right upper quadrant ultrasound if clinically indicated. Please note that all CT scans at this facility use dose modulation, iterative reconstruction, and/or weight-based dosing when appropriate to reduce radiation dose to as low as reasonably achievable. Dictated by Alex Mccullough MD @ 05/04/2025 2:37:31 PM (Electronically Signed)
[2025-05-04 13:15] LABS: Appearance Urine Clear (Clear)
--- NOTE | 2025-05-04 13:17 | ED.ABDPAIN ---
HPI - Abdominal Pain General Date Seen: 05/04/25 Chief Complaint: Abdominal Pain Stated Complaint: Possible ruptured cyst - sent by triage Time Seen by Provider: 05/04/25 11:18 Source: patient and family Mode of arrival: ambulatory Limitations: no limitations History of Present Illness HPI narrative: Patient is a 49-year-old female presents here with left lower quadrant pain for the last 3 days, she has noted really stabbing on Sunday, and has decreased in intensity since then, she works in our emergency room in registration. And did want to come in, she also has had double the length of her normal menses. She notes that is on off she is passing some clots associated with this. She is regular with her periods up until now. She is not all possibility of . Taking ibuprofen 400 mg twice a day and this is helping the pain considerably she has not noted any dysuria frequency any blood in her urine and he smell she has no other diarrhea, abdominal pain she has no history of previous surgeries at all. On her abdomen. And no history of previous pregnancies. Pain is not changed in either if anything is gotten less, she describes it as stabbing, there is no eye radiation anywhere associated with that there was another nausea, vomiting, or diaphoresis. MD elicited complaint: abdominal pain Pertinent past history: none Related Data Date of last menstrual period: 04/28/25 Patient : No Home Medications ?Medication ?Instructions ?Recorded ?Confirmed chlorthalidone 25 mg tablet 25 mg PO DAILY 05/04/25 05/04/25 losartan 100 mg tablet 100 mg PO DAILY 05/04/25 05/04/25 pantoprazole 40 mg tablet,delayed 40 mg PO DAILY 05/04/25 05/04/25 release tirzepatide (weight loss) 2.5 2.5 mg subcut 05/04/25 mg/0.5 mL subcutaneous pen injector (Zepbound) Allergies Allergy/AdvReac Type Severity Reaction Status Date / Time No Known Drug Allergies Allergy Verified 05/04/25 09:52 Review of Systems Status of ROS Reports: 10 or more systems reviewed and unremarkable except as noted in History and below Exam Narrative: Exam Narrative: On examination here patient is in no apparent distress she is pleasant alert very nice lady, her abdomen shows a slightly obese abdomen, sore some mild tenderness in left lower quadrant, bowel sounds are normal, no peritoneal signs, no organomegaly, no CVA tenderness and she is otherwise normally. Const: Vital Signs, click to edit/add: Vital Signs - 24 hr 05/04/25 09:44 05/04/25 12:59 Temperature 95.7 F L Pulse Rate [Pulse Oximeter] 103 H 82 Respiratory Rate 18 18 Blood Pressure [Ri ght Upper Arm] 133/81 137/76 Pulse Oximetry 96 96 Oxygen Delivery Me thod Room Air Room Air Course Vital Signs Vital signs: Initial Vital Signs Temperature 95.7 F L 05/04/25 09:44 Temperature Source Temporal Artery Scan 05/04/25 09:44 Pulse Rate 103 H 05/04/25 09:44 Pulse Rhythm Regular 05/04/25 09:44 Respiratory Rate 18 05/04/25 09:44 Blood Pressure 133/81 05/04/25 09:44 Blood Pressure Mean 98 05/04/25 09:44 Blood Pressure Position Sitting 05/04/25 09:44 Pulse Oximetry 96 05/04/25 09:44 Oxygen Delivery Method Room Air 05/04/25 09:44 Vital Signs Temperature 95.7 F L 05/04/25 09:44 Pulse Rate 103 H 05/04/25 09:44 Respiratory Rate 18 05/04/25 09:44 Blood Pressure 133/81 05/04/25 09:44 Pulse Oximetry 96 05/04/25 09:44 Oxygen Delivery Method Room Air 05/04/25 09:44 Temperature 95.7 F L 05/04/25 09:44 Pulse Rate 82 05/04/25 12:59 Respiratory Rate 18 05/04/25 12:59 Blood Pressure 137/76 05/04/25 12:59 Pulse Oximetry 96 05/04/25 12:59 Oxygen Delivery Method Room Air 05/04/25 12:59 MDM - Abdominal Pain MDM Narrative Medical decision making narrative: During the evaluation of this patient I considered multiple differential diagnosis including life-threatening differentials which are appendicitis, aortic aneurysm, mesenteric ischemia, bowel perforation, ectopic , volvulus and bowel obstruction, other differential diagnosis include but are not limited to inflammatory bowel disease, cholecystitis, pancreatitis, hepatitis, gastritis, GERD, diverticulitis, peptic ulcer disease, pyelonephritis/UTI, renal colic/stone, pelvic inflammatory disease, cervicitis, endometritis, intrauterine , dysfunctional uterine bleeding, ovarian cyst/torsion, spontaneous as well as other etiologies Differential Diagnosis Differential diagnosis: Likely abdominal pain, acute appendicitis, calculus of kidney, constipation, diverticulitis, endometriosis, gastroenteritis, pancreatitis and small bowel obstruction Medical Records Attestation: I reviewed the patient's medical records. Lab Data Attestation: I reviewed the patient's lab results. Labs: Lab Results 05/04/25 05/04/25 Range/Units 13:15 13:45 Urine Color Yellow (Yellow) Urine Appearance Clear (Clear) Urine pH 6.0 (5.0-8.5) Ur Specific Warren 1.015 (1.000-1.030) Urine Protein Negative (Negative) Urine Glucose (UA) Negative (Negative) Urine Ketones Trace A (Negative) Urine Blood 1+ A (Negative) Urine Nitrite Negative (Negative) Urine Bilirubin Negative (Negative) Urine Urobilinogen 0.2 (0.2-1.0) Ur Leukocyte Esterase Negative (Negative) Urine RBC 2-5 A (0-2) Urine WBC 0-2 (0-5) Ur Squamous Epith Cells Moderate A (None-Few) Urine Bacteria None (None) Urine HCG, Qual Negative (Negative) Imaging Data Pelvic ultrasound: Attestation: I have reviewed the pertinent imaging results. Radiologist's impression: Patient: Subha Arias MR#: [id number] : 1975 Acct:[id number] Loc: ED Service Date: 05/04/[address]: Ordering Physician: Henrry Rodriges M.D. Date of Service: 05/04/25 Procedure(s): US pelvic transvaginal Accession Number(s): [id number] cc: Rachel Roberto PA-C; Henrry Rodriges M.D.~ For Patients: As a result of the Century Cures Act, medical imaging exams and procedure reports are released immediately into your electronic medical record. You may view this report before your referring provider. If you have questions, please contact your health care provider. INDICATION: Left-sided pain TECHNIQUE: Ultrasound pelvis transvaginal for better assessment or to better visualize the endometrium. Real-time sonographic images with spectral and color Doppler imaging of the ovaries were obtained. COMPARISON: None. FINDINGS: Uterus: 11.8 x 9.4 x 9.4 centimeters. Multiple uterine fibroids -a right uterine body fibroid measuring 5.3 x 4.8 by 4.8 centimeters (FIGO 3-5) -left uterine body fibroid measuring 4.2 x 3.7 x 3.9 centimeters (FIGO 3, 4) -left uterine fibroid near the fundus measuring 3 x 3.3 x 2.9 centimeters (FIGO 3, possibly FIGO 2) Endometrium: Transvaginal imaging was performed to better evaluate the endometrium. Endometrial thickness measures the mm. No sign of endometrial mass or fluid. Right ovary is not visualized. Left ovary 3.5 x 1.6 x 1.8 centimeters. No ovarian or adnexal masses. Normal arterial and venous blood flow is demonstrated in left ovary. Cul-de-sac: No significant free fluid. IMPRESSION: Multiple uterine fibroids, as detailed above. Normal endometrial thickness. Dictated by Toshia Chang MD @ 05/04/2025 12:55:57 PM (Electronically Signed)[place] [address] Diagnostic Imaging Report Patient: Subha Arias MR#: [id number] : 1975 Acct:[id number] Loc: ED Service Date: 05/04/[address]: Ordering Physician: Henrry Rodriges M.D. Date of Service: 05/04/25 Procedure(s): CT abdomen pelvis wo con Accession Number(s): [id number] cc: Rachel Roberto PA-C; Henrry Rodriges M.D.~ For Patients: As a result of the Century Cures Act, medical imaging exams and procedure reports are released immediately into your electronic medical record. You may view this report before your referring provider. If you have questions, please contact your health care provider. INDICATION: Left lower quadrant pain. TECHNIQUE: CT abdomen and pelvis acquired without contrast. COMPARISON: Same-day pelvic ultrasound. FINDINGS: Lower chest: Unremarkable Liver: Small subcentimeter hypodense lesion, too small to characterize. Gallbladder and bile ducts: Small punctate hypodensity seen in the gallbladder, which could be reflective of a small stone. Pancreas: Unremarkable Spleen: Unremarkable Adrenal glands: Stable 2.1 centimeter benign-appearing left adrenal lesion, favored to be adenoma based on prior examinations. Kidneys: 4 millimeter nonobstructing right renal calculus in lower pole. No hydronephrosis. No left renal calculi. GI tract: Small hiatal hernia. Normal appendix. Vasculature: Abdominal aorta is normal in caliber. Lymph nodes: No lymphadenopathy. Peritoneum/Abdominal Wall: Unremarkable Pelvis: Fibroid uterus. Please refer to same day ultrasound. Bones: No acute osseous abnormality. IMPRESSION: 4 millimeter nonobstructing right renal calculus. No hydronephrosis. Small punctate hyperdensity seen within gallbladder, could be reflective a gallstone. Further evaluation can be obtained with right upper quadrant ultrasound if clinically indicated. Please note that all CT scans at this facility use dose modulation, iterative reconstruction, and/or weight-based dosing when appropriate to reduce radiation dose to as low as reasonably achievable. Dictated by Alex Mccullough MD @ 05/04/2025 2:37:31 PM (Electronically Signed) Discharge Plan Discharge Clinical Impression: Abdominal pain, Right nephrolithiasis, Cholelithiasis Patient Disposition: Home, Self-Care Condition: Stable Instructions: Abdominal Pain (ED) Additional Instructions: Discussed with patient, no evidence of a cause for her left lower quadrant pain. I think it be reasonable to watch this, she does have the right-sided and Nephro lithiasis, that is unchanged and possibly some cholelithiasis. Return as needed. Or worsening Activity Level: Light activity Discharge Diet: Regular Prescriptions: No Action chlorthalidone 25 mg tablet 25 mg PO DAILY pantoprazole 40 mg tablet,delayed release (DR/EC) 40 mg PO DAILY losartan 100 mg tablet 100 mg PO DAILY Zepbound 2.5 mg/0.5 mL pen injector 2.5 mg subcut Follow Up/Referrals: Rachel Roberto PA-C [Primary Care Provider, Family Practice] Stand Alone Forms: [facility] Info Instructions
[2025-05-04 14:14] LABS: Ur HCG Qualitative* Negative (Negative)
== END 2025-05-04 14:50 | disposition home or self-care (01) ==
PROVIDERS: Emergency Provider Family Medicine; PCP Physician Assistant Medical
DX: N20.0 Calculus of kidney (principal); K80.20 Calculus of gallbladder without cholecystitis without obstruction
CPT/HCPCS: 74176; 76830; 81001; 81025; 93976; 99284